=== PATIENT | male | born 1950 | race African-American/Black ===

== ENCOUNTER 2023-09-20 19:43 | Inpatient (IN) | payer MEDICARE, OTHER ==
[~2023-09-20] VITALS: Ht 190.5 cm; Wt 55.3 kg
[2023-09-20 20:00] VITALS: BP_SYST 102; BP_SYST 103; BP_DIAS 52; BP_DIAS 60; PULSE 62; PULSE 64; RESP 18; TEMP 98.2; TEMP 99.9
[2023-09-20] MEDS ORDERED: DEXTROSE 50% WATER 50ML SYRINGE IV PRN (22:00)
[2023-09-20] MEDS ORDERED: ACETAMINOPHEN 650MG/20.3ML UDC PO PRN (22:00)
[2023-09-20] MEDS: CEFAZOLIN 1000MG PREMIX 50 ML IV SCH (23:00)
[2023-09-21] MEDS ORDERED: *PATIENT'S OWN MEDICATION STORAGE XX SCH (00:45)
[2023-09-21] MEDS: BLOOD SUGAR DIAGNOSTIC STRIP TEST SCH (06:30)
[2023-09-21] MEDS: PIOGLITAZONE 15MG TABLET PO SCH (06:49)
[2023-09-21] MEDS: INSULIN LISPRO 100 UNITS/ML SUBCUT SCH (06:56)
[2023-09-21 08:00] VITALS: BP 141/77; PULSE 100; RESP 18; TEMP 97.2
[2023-09-21] MEDS ORDERED: METFORMIN HCL 500MG TABLET PO SCH (09:00)
[2023-09-21] MEDS ORDERED: NAPROXEN 500MG TABLET PO ONE (09:00)
[2023-09-21] MEDS ORDERED: ENOXAPARIN 40MG/0.4ML SYR SUBCUT SCH (09:00)
[2023-09-21] MEDS: NAPROXEN 500MG TABLET PO SCH (09:00)
[2023-09-21] MEDS ORDERED: LISI10TA26 PO (09:07)
[2023-09-21] MEDS ORDERED: DAPA10TA PO (09:07)
[2023-09-21] MEDS ORDERED: PIOG15TA66 PO (09:07)
[2023-09-21] MEDS ORDERED: NAPR-681 PO (09:07)
[2023-09-21] MEDS ORDERED: EZET10TA81 PO (09:07)
[2023-09-21] MEDS ORDERED: ATOR40TA70 PO (09:07)
[2023-09-21] MEDS ORDERED: SEMA14TA2 PO (09:07)
[2023-09-21] MEDS: FOLIC ACID 1MG TABLET PO SCH (09:45)
[2023-09-21] MEDS: THIAMINE HCL 100MG TABLET PO SCH (09:45)
[2023-09-21] MEDS: LOSARTAN 50 MG TABLET PO SCH (09:45)
[2023-09-21] MEDS: EZETIMIBE 10MG TABLET PO SCH (09:45)
[2023-09-21] MEDS: CEPHALEXIN 250MG CAPSULE PO SCH (09:46)
[2023-09-21] MEDS: RYBELSUS PO SCH (09:47)
[2023-09-21] MEDS: FARXIGA 10 MG TABLET PO SCH (09:48)
[2023-09-21] MEDS: ENOXAPARIN 40MG/0.4ML SYR SUBCUT NR (14:00)
[2023-09-21] MEDS: METFORMIN HCL 500MG TABLET PO NR (17:00)
[2023-09-21 20:00] VITALS: BP 144/79; PULSE 80; RESP 18; TEMP 97.5
[2023-09-21] MEDS: ATORVASTATIN CALCIUM 40MG TABLET PO SCH (21:37)
[2023-09-22 08:00] VITALS: BP 111/61; PULSE 78; RESP 18; TEMP 97.9
[2023-09-22 20:00] VITALS: BP 131/72; PULSE 74; RESP 18; TEMP 97
[2023-09-23 08:00] VITALS: BP_SYST 135; BP_SYST 166; BP_DIAS 63; BP_DIAS 66; PULSE 66; PULSE 88; RESP 18; RESP 19; TEMP 98
[2023-09-23 20:00] VITALS: BP 128/66; PULSE 85; RESP 20; TEMP 97.4
[2023-09-24 08:00] VITALS: BP 123/59; PULSE 73; RESP 20; TEMP 98.6
[2023-09-24] MEDS ORDERED: ACETAMINOPHEN 650MG/20.3ML UDC PO PRN (11:45)
[2023-09-24 20:00] VITALS: BP 151/76; PULSE 108; RESP 19; TEMP 97.6
[2023-09-25 08:00] VITALS: BP 92/55; PULSE 65; RESP 18; TEMP 96.8
[2023-09-25 20:00] VITALS: BP 139/69; PULSE 85; RESP 18; TEMP 98.2
[2023-09-26 08:00] VITALS: BP 124/61; PULSE 68; RESP 18; TEMP 97
[2023-09-26 20:00] VITALS: BP 122/47; PULSE 91; RESP 18; TEMP 97.5
[2023-09-27 08:00] VITALS: BP 119/57; PULSE 71; RESP 20; TEMP 98.4
[2023-09-27 20:00] VITALS: BP 115/60; PULSE 20; RESP 20; TEMP 96.9
[2023-09-28 08:00] VITALS: BP 97/61; PULSE 99; RESP 18; TEMP 96.8
[2023-09-28 20:00] VITALS: PULSE 78; RESP 20; TEMP 97.4
[2023-09-29 08:00] VITALS: BP 105/65; PULSE 77; RESP 19; TEMP 96.7
[2023-09-29 20:30] VITALS: BP 137/74; PULSE 90; RESP 18; TEMP 97.7
[2023-09-30 08:00] VITALS: BP 95/64; PULSE 110; RESP 18; TEMP 96.9
[2023-09-30 20:00] VITALS: BP 123/60; PULSE 91; RESP 18; TEMP 97.1
[2023-10-01 08:00] VITALS: BP 100/53; PULSE 77; RESP 20; TEMP 97.5
[2023-10-01] MEDS ORDERED: THIA100T72 PO (10:42)
[2023-10-01] MEDS ORDERED: LOSA50TA41 PO (10:42)
[2023-10-01 12:37] VITALS: BP 103/56; PULSE 78; TEMP 97.5; O2SAT 98
== END 2023-10-01 16:25 | disposition home health service (06) | DRG 73 ==
PROVIDERS: ADMIT Physical Medicine & Rehabilitation Spinal Cord Injury Medicine; ATTEND Family Medicine Adult Medicine
DX: E11.42 Type 2 diabetes mellitus with diabetic polyneuropathy (principal); A41.9 Sepsis, unspecified organism; L03.115 Cellulitis of right lower limb; L03.116 Cellulitis of left lower limb; J81.1 Chronic pulmonary edema; E11.621 Type 2 diabetes mellitus with foot ulcer; E66.9 Obesity, unspecified; M22.42 Chondromalacia patellae, left knee; Z68.32 Body mass index [BMI] 32.0-32.9, adult; R29.6 Repeated falls; I10 Essential (primary) hypertension; S83.242D Other tear of medial meniscus, current injury, left knee, subsequent encounter; S83.282D Other tear of lateral meniscus, current injury, left knee, subsequent encounter; F10.10 Alcohol abuse, uncomplicated; E78.00 Pure hypercholesterolemia, unspecified; Z91.81 History of falling; E11.65 Type 2 diabetes mellitus with hyperglycemia; L97.519 Non-pressure chronic ulcer of other part of right foot with unspecified severity; D64.9 Anemia, unspecified; S92.414A Nondisplaced fracture of proximal phalanx of right great toe, initial encounter for closed fracture; I87.8 Other specified disorders of veins; Z79.84 Long term (current) use of oral hypoglycemic drugs
CPT/HCPCS: 71045; 73630; 82962; 93005; 93306; 93922; 93970; 97110; 97116; 97150; 97162; 97166; 97530; 97535; A6261; J0690; J1815